=== PATIENT | female | born 2000 | race African-American/Black ===

== ENCOUNTER 2021-07-04 19:34 | Emergency (ER) | payer OTHER ==
[~2021-07-04] VITALS: Ht 162.6 cm; Wt 100.0 kg
[2021-07-04 21:39] LABS: BASOPHILS % 0.4 % (0.0-2.0); EOSINOPHILS % 0.5 % (0.0-5.0); HEMATOCRIT. 33.7 % (36.0-48.0); HEMOGLOBIN. 11.1 g/dL (12.0-16.0); LYMPHOCYTES % 34.2 % (20.0-50.0); MEAN CORPUSCULAR HEMOGLOBIN 24.4 pg (28.0-32.0); MEAN CORPUSCULAR VOLUME 73.9 fL (81.0-99.0); MEAN PLATELET VOLUME 8.1 fl (7.4-10.4); MONOCYTES % 7.8 % (2.0-8.0); NEUTROPHILS % 57.1 % (40.0-76.0); PLATELET 394 x1000/uL (130-400); RED BLOOD CELL COUNT 4.55 mill/uL (4.2-5.4); RED CELL DISTRIBUTION WIDTH 15.2 % (11.6-14.6)
[2021-07-04 21:43] LABS: CHLORIDE 106 mEq/L (98-107)
[2021-07-04 21:46] LABS: HCG SCREEN NEGATIVE
[2021-07-04 23:39] VITALS: BP 117/78
== END 2021-07-04 23:41 | disposition home or self-care (01) ==
LOC: ER 19:34
DX: N93.8 Other specified abnormal uterine and vaginal bleeding (principal)
CPT/HCPCS: 36415; 80053; 84703; 85025; 99283; Z7610